=== PATIENT | male | born 1960 | race Caucasian/White ===

== ENCOUNTER 2019-12-01 04:09 | Inpatient (IN) ==
[2019-12-01] MEDS ORDERED: Ondansetron 4 mg VIAL 2 MG/ML 2 ml VIAL IV PRN (08:34)
[2019-12-01] MEDS: oxyCODONE SR 10 mg TAB PO SCH ×2 (09:29→20:07)
[2019-12-01] MEDS: Morphine 2 MG/ML SYRINGE IV PRN ×3 (09:35→22:46)
[2019-12-02 07:03] LABS: Hematocrit 36 % (42-52); Hemoglobin 12.5 g/dL (14.0-18.0); Mean Corpuscular HGB Conc 35 g/dL (31-36); Mean Corpuscular Hemoglobin 31 pg (27-31); Mean Corpuscular Volume 89 fL (80-94); Mean Platelet Volume 8.8 fL (7.4-10.4); Platelet Count 323 10^3/uL (150-450); Red Blood Count 4.06 10^6 /uL (4.18-5.48); Red Cell Distribution Width 14 % (10-15); White Blood Count 13.8 10^3/uL (3.5-10.8)
[2019-12-02 07:20] LABS: BUN/Creatinine Ratio 20.8 (8-20); Calcium 8.5 mg/dL (8.6-10.3); EGFR Non-African American 104.1 (>60); Magnesium 1.7 mg/dL (1.9-2.7); Potassium 4.2 mmol/L (3.5-5.0)
[2019-12-02] MEDS ORDERED: Magnesium Hydroxide LIQ 30 ML UDC PO PRN (07:45)
[2019-12-02] MEDS ORDERED: Senna TAB 8.6 mg TAB PO PRN (07:45)
[2019-12-02] MEDS: oxyCODONE SR 10 mg TAB PO SCH ×2 (08:38→20:13)
[2019-12-02] MEDS ORDERED: Influenza VAC *QUAD* 2020-21* 0.5 ML SYRINGE IM ONE (09:00)
[2019-12-02 09:15] LABS: ABS Eosinophils 0.2 10^3/ul (0-0.6); ABS Monocytes 1.3 10^3/ul (0-0.8); ABS Neutrophils 11.3 10^3/ul (1.5-7.7); Eosinophil % 1.6 %; Lymphocyte % 6.9 %
[2019-12-02 09:28] LABS: INR 1.36 (0.82-1.09)
[2019-12-02] MEDS: Enoxaparin 40 MG/0.4 ML SYR SUBCUT SCH (14:52)
[2019-12-02] MEDS ORDERED: Dextrose 50% Syringe 50 ml 25 GM/50 ML SYRINGE IV PUSH PRN (15:23)
[2019-12-02] MEDS ORDERED: NS 0.9% IV SCH (23:30)
[2019-12-02] MEDS: cefTRIAXone 1 gm/50 mL NS BAG 1 GM/50 ML BAG IVPB SCH (23:47)
[2019-12-03 00:09] LABS: Hematocrit 35 % (42-52); Hemoglobin 11.7 g/dL (14.0-18.0); Mean Corpuscular HGB Conc 34 g/dL (31-36); Mean Corpuscular Hemoglobin 30 pg (27-31); Mean Corpuscular Volume 89 fL (80-94); Mean Platelet Volume 8.5 fL (7.4-10.4); Platelet Count 362 10^3/uL (150-450); Red Cell Distribution Width 14 % (10-15); White Blood Count 12.1 10^3/uL (3.5-10.8)
[2019-12-03 00:35] LABS: Albumin 2.6 g/dL (3.2-5.2); Albumin/Globulin Ratio 0.8 (1-3); BUN/Creatinine Ratio 20.5 (8-20); EGFR Non-African American 110.7 (>60); Globulin 3.3 g/dL (2-4); Total Bilirubin 0.9 mg/dL (0.2-1.0); Total Protein 5.9 g/dL (6.4-8.9)
[2019-12-03 01:24] LABS: ABS Eosinophils 0.1 10^3/ul (0-0.6); ABS Lymphocytes 0.8 10^3/ul (1.0-4.8); ABS Monocytes 1.1 10^3/ul (0-0.8); ABS Neutrophils 10.1 10^3/ul (1.5-7.7); Eosinophil % 0.8 %; Lymphocyte % 6.5 %
[2019-12-03 08:12] LABS: Magnesium 1.7 mg/dL (1.9-2.7)
[2019-12-03] MEDS: guaiFENesin 100 mg/5 ml LIQ unit dose cup PO PRN ×2 (08:43→21:17)
[2019-12-03] MEDS: oxyCODONE SR 10 mg TAB PO SCH ×2 (08:46→21:17)
[2019-12-03] MEDS: Enoxaparin 40 MG/0.4 ML SYR SUBCUT SCH (13:04)
[2019-12-03 14:21] LABS: Lactate Dehydrogenase, BF 233 U/L
[2019-12-03] MEDS ORDERED: Lactated Ringers 1000 ml BAG 1,000 ML IV ONE (15:40)
[2019-12-03] MEDS: Insulin GLARGINE 100 un/ml 10 ml VIAL SUBCUT SCH (17:33)
[2019-12-03 17:44] LABS: TSH Ultra Thyroid Stim Horm 1.25 mcIU/mL (0.34-5.60)
[2019-12-03] MEDS: cefTRIAXone 1 gm/50 mL NS BAG 1 GM/50 ML BAG IVPB SCH (23:16)
[2019-12-04] MEDS: guaiFENesin 100 mg/5 ml LIQ unit dose cup PO PRN ×3 (04:23→21:17)
[2019-12-04 06:00] LABS: Hematocrit 34 % (42-52); Hemoglobin 11.7 g/dL (14.0-18.0); Mean Corpuscular HGB Conc 34 g/dL (31-36); Mean Corpuscular Hemoglobin 31 pg (27-31); Mean Corpuscular Volume 89 fL (80-94); Mean Platelet Volume 8.7 fL (7.4-10.4); Platelet Count 407 10^3/uL (150-450); Red Blood Count 3.82 10^6 /uL (4.18-5.48); Red Cell Distribution Width 14 % (10-15); White Blood Count 10.1 10^3/uL (3.5-10.8)
[2019-12-04 06:15] LABS: BUN/Creatinine Ratio 16.1 (8-20); C Reactive Protein 186.7 mg/L (<8.01); Calcium 7.8 mg/dL (8.6-10.3); EGFR African American 161.8 (>60); EGFR Non-African American 133.7 (>60); Magnesium 1.7 mg/dL (1.9-2.7); Potassium 4.1 mmol/L (3.5-5.0)
[2019-12-04 07:43] LABS: ABS Eosinophils 0.2 10^3/ul (0-0.6); ABS Lymphocytes 0.9 10^3/ul (1.0-4.8); Eosinophil % 1.6 %; Lymphocyte % 8.6 %
[2019-12-04] MEDS: oxyCODONE SR 10 mg TAB PO SCH (09:45)
[2019-12-04 10:11] LABS: Fluid Type, Protein, Total PLERUAL FLUID
[2019-12-04] MEDS: Enoxaparin 40 MG/0.4 ML SYR SUBCUT SCH (13:05)
[2019-12-04] MEDS: Insulin GLARGINE 100 un/ml 10 ml VIAL SUBCUT SCH (17:47)
[2019-12-04] MEDS: oxyCODONE SR 20 mg TAB PO SCH (21:15)
[2019-12-05] MEDS: cefTRIAXone 1 gm/50 mL NS BAG 1 GM/50 ML BAG IVPB SCH (00:05)
[2019-12-05 06:38] LABS: BUN/Creatinine Ratio 15.5 (8-20); Calcium 7.9 mg/dL (8.6-10.3); EGFR African American 138.4 (>60); EGFR Non-African American 114.4 (>60); Potassium 3.9 mmol/L (3.5-5.0)
[2019-12-05] MEDS: oxyCODONE SR 20 mg TAB PO SCH ×2 (08:30→19:46)
[2019-12-05] MEDS: guaiFENesin 100 mg/5 ml LIQ unit dose cup PO PRN ×2 (08:32→19:15)
[2019-12-05] MEDS ORDERED: ceFAZolin VIAL 2 GM in NS 0.9% 100 ml BAG 100 ML IVPB SCH (11:00)
[2019-12-05] MEDS ORDERED: ceFAZolin 2 GM PREMIX 2 GM/50 ML BAG IVPB SCH ×2 (11:00→20:00)
[2019-12-05] MEDS ORDERED: Iodixanol (CONTRAST) 320 MG/ML 100 ML SDV IV ONE (15:07)
[2019-12-05] MEDS: Enoxaparin 40 MG/0.4 ML SYR SUBCUT SCH (15:08)
[2019-12-05] MEDS ORDERED: Insulin GLARGINE 100 un/ml 10 ml VIAL SUBCUT SCH (18:00)
[2019-12-05 20:37] VITALS: BP 131/84
== END 2019-12-05 21:12 | disposition short-term general hospital (02) | DRG 871 ==
LOC: MED 07:37
PROVIDERS: ADMIT Pediatrics; ATTEND Internal Medicine